=== PATIENT | female | born 1940 | race Two or more races ===

== ENCOUNTER → 2024-03-22 | Outpatient (CLI) | payer MEDICAID ==
[~2024-03-22] VITALS: Ht 144.8 cm; Wt 74.4 kg
[2024-03-22] MEDS: ADENOSINE 62 MG in GIVE UN-DILUTED 0 ML IV STA (11:55)
== END | disposition home or self-care (01) ==
LOC: XYW 10:03
PROVIDERS: ATTEND Student in an Organized Health Care Education/Training Program
DX: Z01.810 Encounter for preprocedural cardiovascular examination (principal); R94.31 Abnormal electrocardiogram [ECG] [EKG]
CPT/HCPCS: 78452; 93017; A9500; J0153